=== PATIENT | female | born 1955 | race Two or more races ===

== ENCOUNTER 2021-02-21 21:30 | Emergency (ER) | payer MEDICARE, OTHER ==
[~2021-02-21] VITALS: Ht 317.5 cm; Wt 86.2 kg
--- NOTE | 2021-02-21 21:50 | NUR ---
PATIENT REGGIE 839 FELL OFF LADDER 5-6FT HIGH, C/O LOWER BACK PAIN. +HT, ABRASSION ON LEFT THIGH. PATIENT IS A/O X 4, RR EVEN AND UNLABORED, NO SIGNS OF SOB. PATIENT CONNECTED TO CUSTOMER CONTACT SPECIALIST AND POX.
--- NOTE | 2021-02-21 21:56 | NUR ---
PATIENT TAKEN TO CT
[2021-02-21] MEDS ORDERED: ONDANSETRON 4 MG TAB.RAPDIS PO ONE (22:00)
[2021-02-21] MEDS ORDERED: MORPHINE SULFATE INJ 2 MG/ML DISP.SYRIN IM ONE (22:00)
[2021-02-21] MEDS ORDERED: MORPHINE SULFATE INJ 4 MG/ML DISP.SYRIN ONE (22:16)
[2021-02-21] MEDS ORDERED: ONDANSETRON 4 MG TAB.RAPDIS ONE (22:16)
--- NOTE | 2021-02-22 00:07 | NUR ---
Gómez saenz in [facility] - 02/22/21 at 0114 by REJI ELOISA MONTENEGRO CALLED FOR PEER TO PEER.
[2021-02-22 00:12] LABS: BASOPHILS % (AUTO) 0.2 % (0.0-2.0); EOSINOPHILS % (AUTO) 0.1 % (0.0-6.0); HEMATOCRIT 42 % (33-45); HEMOGLOBIN 13.3 g/dL (11.5-14.8); LYMPHOCYTES # (AUTO) 1.6 K/uL (0.8-4.8); LYMPHOCYTES % (AUTO) 9.4 % (20.0-44.0); MEAN CORPUSCULAR HGB CONC 31 g/dl (31.0-36.0); MEAN CORPUSCULAR VOLUME 96 fL (82-100); MONOCYTES # (AUTO) 0.9 K/uL (0.1-1.30); MONOCYTES % (AUTO) 4.9 % (2.0-12.0); NEUTROPHILS # (AUTO) 14.8 K/uL (1.8-8.9); NEUTROPHILS % (AUTO) 85.4 % (43.0-81.0); PLATELET COUNT (AUTO) 143 K/uL (150-450); RED BLOOD CELL COUNT(AUTO) 4.39 MIL/uL (4.0-5.2); WHITE BLOOD COUNT (AUTO) 17.4 K/uL (4.3-11.0)
--- NOTE | 2021-02-22 00:19 | NUR ---
COVID SWAB COLLECTED AND SENT TO LAB
[2021-02-22] MEDS ORDERED: HYDROMORPHONE 1 MG/1 ML DISP.SYRIN IV ONE (00:30)
[2021-02-22 00:35] LABS: ALBUMIN 3.9 g/dL (3.4-5.0); BILIRUBIN,DIRECT 0.1 mg/dL (0.0-0.2); BILIRUBIN,TOTAL 0.3 mg/dL (0.2-1.0); CREATININE 0.7 mg/dL (0.6-1.3); POTASSIUM 3.7 mmol/L (3.5-5.1); TOTAL PROTEIN, SERUM 8.1 g/dL (6.4-8.2)
[2021-02-22] MEDS ORDERED: HYDROMORPHONE 1 MG/1 ML DISP.SYRIN ONE (00:36)
--- NOTE | 2021-02-22 00:55 | NUR ---
CALI CURRIE MD TERRITORY BUSINESS MANAGER WITH [facility] CLAUDIO
--- NOTE | 2021-02-22 01:11 | NUR ---
CASE PRESENTED TO [facility] SPOKE TO CHARGE NURSE TONI.
--- NOTE | 2021-02-22 01:12 | NUR ---
KUSH CLAUDIO SPOKE TO DR. ROBERTS FROM [facility] AND ACCEPTED PT.
--- NOTE | 2021-02-22 01:24 | NUR ---
REPORT CALLED TO ZITA WYNNE.
--- NOTE | 2021-02-22 01:26 | NUR ---
[facility] CALLED FOR INTERFACILTY TRANSFER.
[2021-02-22 01:37] VITALS: BP 133/60
--- NOTE | 2021-02-22 01:42 | NUR ---
TAMMIE WHITE AT BEDSIDE REPORT GIVEN TO [facility].
--- NOTE | 2021-02-22 02:50 | NUR ---
ELOISA MONTENEGRO CALLED (AUTH# [id number]).
== END 2021-02-22 01:48 ==
LOC: ER 21:32
DX: S32.011A Stable burst fracture of first lumbar vertebra, initial encounter for closed fracture (principal); W11.XXXA Fall on and from ladder, initial encounter; Y93.H2 Activity, gardening and landscaping; Y92.017 Garden or yard in single-family (private) house as the place of occurrence of the external cause; Y99.8 Other external cause status; S22.081A Stable burst fracture of T11-T12 vertebra, initial encounter for closed fracture; S20.229A Contusion of unspecified back wall of thorax, initial encounter; Z88.0 Allergy status to penicillin; I10 Essential (primary) hypertension; E11.9 Type 2 diabetes mellitus without complications; D72.829 Elevated white blood cell count, unspecified; Z20.822 Contact with and (suspected) exposure to COVID-19
CPT/HCPCS: 36415; 72131; 80048; 80076; 85025; 85730; 87426; 96372; 96374; 99291; C9803; J1170; J2270; Q0162